=== PATIENT | male | born 1980 | race Caucasian/White ===

== ENCOUNTER 2023-05-21 12:55 | Emergency (ER) | payer OTHER ==
[~2023-05-21] VITALS: Ht 165.1 cm; Wt 78.2 kg
[2023-05-21] MEDS ORDERED: MED REC IN PROGRESS XX SCH (13:45)
[2023-05-21 13:50] LABS: HEMATOCRIT 44.2 % (42.0-52.0); HEMOGLOBIN 15.3 g/dl (13.5-17.5); MEAN CORPUSCULAR HEMOGLOBIN 28.8 pg (27.0-33.0); MEAN CORPUSCULAR HGB CONC 34.6 g/dl (32.0-36.5); MEAN CORPUSCULAR VOLUME 83.1 fl (80.0-96.0); PLATELET COUNT, AUTOMATED 406 10^3/uL (150-450); RED BLOOD COUNT 5.32 10^6/uL (4.30-6.10); WHITE BLOOD COUNT 12.8 10^3/uL (4.0-10.0)
[2023-05-21 14:19] LABS: AMPHETAMINES LEVEL URINE NEGATIVE (NEGATIVE); BARBITURATES URINE NEGATIVE (NEGATIVE); BENZODIAZEPINES URINE NEGATIVE (NEGATIVE); COCAINE METABOLITE URINE NEGATIVE (NEGATIVE); METHADONE URINE NEGATIVE (NEGATIVE); OPIATES URINE NEGATIVE (NEGATIVE); PHENCYCLIDINE URINE NEGATIVE (NEGATIVE)
[2023-05-21 14:21] LABS: VALPROIC ACID (DEPAKOTE) 84.2 UG/ML (50.0-100.0)
[2023-05-21 14:22] LABS: ETHYL ALCOHOL (ETHANOL) < 0.003 % (0.000-0.010); SALICYLATE LEVEL < 3.0 MG/DL (<30)
[2023-05-21 14:23] LABS: ALBUMIN 4.1 G/DL (3.2-5.2); ALKALINE PHOSPHATASE 126 U/L (46-116); ALT/SGPT 32 U/L (7.0-40); AST/SGOT 16 U/L (<34); BILIRUBIN,DIRECT 0.1 MG/DL (<0.4); BILIRUBIN,TOTAL 0.5 MG/DL (0.3-1.2); BLOOD UREA NITROGEN 10 MG/DL (9-23); CALCIUM LEVEL 9.6 MG/DL (8.5-10.1); CARBON DIOXIDE LEVEL 28 MMOL/L (20-31); CHLORIDE LEVEL 101 MMOL/L (98-107); CREATININE FOR GFR 0.74 MG/DL (0.70-1.30); GLOMERULAR FILTRATION RATE > 60.0 (>60); GLUCOSE, FASTING 96 MG/DL (60-100); POTASSIUM SERUM 4.1 MMOL/L (3.5-5.1); SODIUM LEVEL 138 MMOL/L (136-145); TOTAL PROTEIN 7.5 G/DL (5.7-8.2)
[2023-05-21 14:25] LABS: THYROID STIMULATING HORMONE 0.882 uIU/ML (0.55-4.78)
[2023-05-21 14:30] LABS: CANNABINOIDS URINE POSITIVE (NEGATIVE)
[2023-05-21] MEDS ORDERED: HYDR-3363 PO (14:59)
[2023-05-21] MEDS ORDERED: IBUP1TAB7 PO (14:59)
[2023-05-21] MEDS ORDERED: OMEP1CAP73 PO (14:59)
[2023-05-21] MEDS ORDERED: CYCL-707 PO (14:59)
[2023-05-21] MEDS ORDERED: QC F0.52 PO (14:59)
[2023-05-21] MEDS ORDERED: DULO1CAP6 PO (14:59)
[2023-05-21] MEDS ORDERED: DIVA500T9 PO (14:59)
[2023-05-21] MEDS ORDERED: VITA100T98 PO (14:59)
[2023-05-21] MEDS ORDERED: SIMV40TA20 PO (14:59)
[2023-05-21] MEDS ORDERED: AMLO1TAB25 PO (14:59)
[2023-05-21] MEDS ORDERED: SUMA50TA2 PO (14:59)
[2023-05-21] MEDS ORDERED: MAGN400C PO (14:59)
[2023-05-21] MEDS ORDERED: MM S100C PO (14:59)
[2023-05-21] MEDS ORDERED: FOLI1TAB11 PO (14:59)
[2023-05-21] MEDS ORDERED: HOME MED LIST COMPLETE! XX SCH (15:05)
[2023-05-21] MEDS ORDERED: LORazepam 0.5 MG TAB PO ONE (20:10)
[2023-05-21] MEDS: DOCUSATE SODIUM 100MG CAPSULE PO SCH (20:11)
[2023-05-21] MEDS ORDERED: NICOTINE 21MG/24HR 1 EA TRANSDERMAL TD ONE (20:40)
[2023-05-21] MEDS ORDERED: DIVALPROEX 500MG *ER* TAB PO SCH (21:00)
[2023-05-22 08:24] VITALS: BP 118/75
[2023-05-22] MEDS: DOCUSATE SODIUM 100MG CAPSULE PO SCH (08:24)
[2023-05-22] MEDS ORDERED: PERCOCET 5MG/325MG TAB PO PRN (08:30)
[2023-05-22] MEDS ORDERED: DULoxetine 30MG CAPSULE (CYMBALTA) PO SCH (09:00)
[2023-05-22] MEDS ORDERED: amLODIPine 5 MG TAB PO SCH (09:00)
[2023-05-22] MEDS ORDERED: OMEPRAZOLE 20MG CAP PO SCH (09:00)
[2023-05-22] MEDS ORDERED: FOLIC ACID 1MG TAB PO SCH (09:00)
[2023-05-22] MEDS ORDERED: SIMVASTATIN 20 MG TAB PO SCH (09:00)
[2023-05-22 11:47] VITALS: BP 119/76; TEMP 97.6; O2SAT 97
== END 2023-05-22 11:49 | disposition home or self-care (01) ==
LOC: M ED 12:55
DX: F31.9 Bipolar disorder, unspecified (principal); I10 Essential (primary) hypertension; F43.10 Post-traumatic stress disorder, unspecified; F12.10 Cannabis abuse, uncomplicated; Z79.83 Long term (current) use of bisphosphonates; Z79.899 Other long term (current) drug therapy

== ENCOUNTER → 2025-01-29 | Outpatient (REF) | payer OTHER ==
[~2025-01-29] MED LIST: AMLO1TAB25 PO; CYCL-707 PO; DIVA500T9 PO; DULO1CAP6 PO; FOLI1TAB11 PO; HYDR-3363 PO; IBUP1TAB7 PO; MAGN400C PO; MM S100C PO; OMEP1CAP73 PO; QC F0.52 PO; SIMV40TA20 PO; SUMA50TA2 PO; VITA100T98 PO
[2025-01-29 12:47] LABS: SEMEN VOLUME 0.5 ml (2.0-5.0)
== END ==
LOC: M LAB REF 12:39
PROVIDERS: ATTEND Nurse Practitioner Family
DX: Z98.52 Vasectomy status (principal); Z53.8 Procedure and treatment not carried out for other reasons

== ENCOUNTER → 2025-04-17 | Outpatient (REF) | payer OTHER | LOC: M LAB REF 14:17 | PROVIDERS: ATTEND Nurse Practitioner Family | DX: Z98.52 Vasectomy status (principal) ==